=== PATIENT | male | born 1960 | race Two or more races ===

== ENCOUNTER → 2024-04-24 | Outpatient (CLI) | payer OTHER, SELFPAY ==
[2024-04-24 12:02] LABS: Basophils # (Auto) 0.1 Thou/mm3 (0.0-0.2); Basophils % (Auto) 1 % (0-2.5); Eosinophils # (Auto) 0.7 Thou/mm3 (0.0-0.5); Eosinophils % (Auto) 7 % (0-10); Hematocrit 40.8 % (41.0-53.0); Hemoglobin 13.5 g/dL (13.5-16.0); Immature Granulocytes % (Auto) 0 % (0-0); Immature Granulocytes Auto 0.04 Thou/mm3 (0.00-0.00); Lymphocytes # (Auto) 2.4 Thou/mm3 (1.0-4.8); Lymphocytes % (Auto) 24 % (10-50); Mean Corpuscular HGB Conc 33.1 g/dl (31.0-37.0); Mean Corpuscular Hemoglobin 32.1 pg (25.0-35.0); Mean Corpuscular Volume 97 fL (80-100); Monocytes # (Auto) 1.1 Thou/mm3 (0.0-0.8); Monocytes % (Auto) 11 % (0-12); Neutrophils # (Auto) 5.7 Thou/mm3 (1.8-7.7); Neutrophils % (Auto) 57 % (37-80); Nucleated Red Blood Cell % 0 /100 WBC (0); Platelet Count 154 Thou/mm3 (140-440); RDW Standard Deviation 49.8 fL (35.1-43.9); Red Blood Count 4.21 Miln/mm3 (4.50-5.90)
[2024-04-24 12:09] LABS: Glucose Estimated Average 103 mg/dL (80-131); Hemoglobin A1C 5.2 % Hgb (4.8-6.0)
[2024-04-24 12:11] LABS: Prostate Specific Antigen 0.64 ng/mL (0-4.00)
[2024-04-24 12:20] LABS: Alanine Aminotransferase 22 U/L (10-49); Albumin, Serum 4.4 gm/dL (3.4-4.8); Albumin/Globulin Ratio 1.7 (1.2-2.2); Alkaline Phosphatase 78 U/L (46-116); Anion Gap 4 (7-16); Aspartate Amino Transferase 19 U/L (0-34); BUN/Creatinine Ratio 20 Ratio (12-20); Bilirubin,Total 0.6 mg/dL (0.3-1.2); Blood Urea Nitrogen 20 mg/dL (9-23); Calcium 9.4 mg/dL (8.3-10.6); Calcium (Corrected) 9.4 mg/dL (8.5-10.1); Carbon Dioxide 32.1 mMol/L (20.0-31.0); Cardiac Risk Estimate 2.3 RATIO (4.0-6.7); Chloride 103 mMol/L (98-107); Cholesterol 102 mg/dL (132-200); Globulin 2.6 gm/dL (2.3-3.5); Glucose 84 mg/dL (74-106); HDL Cholesterol 45 mg/dL (40-60); LDL Cholesterol,Calculated 41 mg/dL (0-130); Osmolality,Calculated 279 (275-295); Sodium 139 mMol/L (136-145); Triglycerides 81 mg/dL (30-150); eGFR > 60 See Note
[2024-04-24 12:50] LABS: Hepatitis C Antibody Non Reactive (Non React)
[2024-05-02 09:32] LABS: Direct LDL* 43 mg/dL (<100)
== END | disposition home or self-care (01) ==
PROVIDERS: PCP Family Medicine; Referring Provider Nurse Practitioner Family; Visit Provider Nurse Practitioner Family
DX: E78.00 Pure hypercholesterolemia, unspecified (principal); Z11.59 Encounter for screening for other viral diseases; Z13.1 Encounter for screening for diabetes mellitus; Z13.9 Encounter for screening, unspecified
CPT/HCPCS: 36415; 80053; 80061; 83036; 83721; 84153; 85025; 86803

== ENCOUNTER 2024-11-23 18:55 | Inpatient (IN) | payer OTHER, MEDICARE, SELFPAY ==
[2024-11-23 19:23] VITALS: BP 119/69; PULSE 80; RESP 20; TEMP 36.9; O2SAT 95
--- NOTE | 2024-11-23 19:40 | EDNOTE_ITS ---
<Statement entered by Judy Chacon MD - 11/24/24 03:40> As co-signing physician, I was present and available for consult prn. I concur with the plan and care as documented by the midlevel provider. Nausea/Vomit./Diarrhea-RME/HPI General Chief complaint: Dental/Oral/Throat Stated complaint: Choking on steak X 2 hours Time Seen by Provider: 11/23/24 19:34 Arrival date/time: 11/23/24 18:55 64M with history of ankylosing spondylitis presents to ED with 2 hours of steak stuck in throat/esophagus. Patient denies SOB. This has never happened before to this extent. Limitations: no limitations Related Data Home Medications ?Medication ?Instructions ?Recorded ?Confirmed atorvastatin 10 mg tablet 10 mg PO QPM 11/24/24 calcium carbonate 600 mg PO TID 11/24/2411/24 folic acid 100 mcg PO QDAY 11/24/24 metoprolol tartrate 50 1 tab PO QDAY 11/24/2411/24 mg-hydrochlorothiazide 25 mg tablet multivitamin 1 tab PO QDAY 11/24/2411/24 secukinumab 150 mg/mL subcutaneous 300 mg subcut QWEEK 11/24/24 11/24/24 syringe (Cosentyx 300 mg/2 Syringes () Allergies Allergy/AdvReac Type Severity Reaction Status Date / Time diazepam (From Valium) Allergy Verified 11/23/24 18:59 morphine Allergy Verified 11/23/24 18:59 Review of Systems Review of Systems Systems Reviewed: All systems reviewed, normal except as documented Constitutional Constitutional: Reports system reviewed and no additional complaints, except as documented, Denies fever(s) and Denies headache(s) ENT Ears, Nose, Mouth, and Throat: Denies disequilibrium and Denies headache(s) Cardiovascular Cardiovascular: Reports system reviewed and no additional complaints, except as documented, Denies chest pain and Denies dyspnea Respiratory Respiratory: Reports system reviewed and no additional complaints, except as documented, Denies cough and Denies dyspnea Gastrointestinal Gastrointestinal: Reports system reviewed and no additional complaints, except as documented, Denies abdominal pain, Denies nausea and Denies vomiting Neurologic Neurologic: Reports system reviewed and no additional complaints, except as documented, Denies confusion, Denies disequilibrium and Denies headache(s) Psychiatric Psychiatric: Denies confusion Past Medical History Social History SMOKING STATUS: Former smoker ED Exam General Limitations: Present no limitations General appearance: Present alert and in no apparent distress Head Head exam: Present atraumatic Eye Eye exam: Present normal appearance, PERRL and EOMI ENT ENT exam: Present normal exam, normal oropharynx and mucous membranes moist Neck Neck exam: Present normal inspection, full ROM and trachea midline Chest Chest inspection: Present normal inspection and symmetric chest wall rise Respiratory Respiratory exam: Present normal lung sounds bilaterally Cardiovascular Cardiovascular exam: Present regular rate, normal rhythm and normal heart sounds Abdominal Exam Abdominal exam: Present soft and normal bowel sounds Extremities Exam Extremities exam: Present normal inspection and full ROM Back Exam Back exam: Present normal inspection and full ROM Neurological Exam Neurological exam: Present alert, oriented X3 and CN II-XII intact Psychiatric Psychiatric exam: Present normal affect and normal mood Skin Skin exam: Present warm, dry, intact and normal color Course Quality Measures none Orders Category Date Time Status Blood glucose [Bedside Blood Glucose] NOW Care 11/23/24 19:02 Active COVID-19 Screening Questionnaire NOW Care 11/23/24 22:23 Active Decision to Admit X1 Care 11/23/24 22:23 Completed Insert IV NOW Care 11/23/24 22:22 Active NPO NOW Care 11/23/24 22:23 Active Consult to Gastroenterology Stat Cons 11/23/24 22:22 Ordered Diet NPO (NOW) Diet 11/23/24 22:23 Active XR chest 2V Stat Exams 11/23/24 22:27 Completed CBC [CBC] Stat Lab 11/23/24 22:42 Completed CMP [Comprehensive Metabolic Panel] Stat Lab 11/23/24 22:42 Completed INR [Prothrombin Time with INR] Stat Lab 11/23/24 22:42 Completed PTT [Partial Thromboplastin Time] Stat Lab 11/23/24 22:42 Completed Glucagon Inj Med 11/23/24 19:34 Discontinued 1 mg IM X1 ONE Metoclopramide Inj [Reglan Inj] Med 11/23/24 21:11 Discontinued 10 mg IM X1 ONE Vital Signs Vital signs: Vital Signs Temperature 98.5 F 11/23/24 19:23 Pulse Rate 80 11/23/24 19:23 Respiratory Rate 20 11/23/24 19:23 Blood Pressure 119/69 11/23/24 19:23 Pulse Oximetry (%) 95 11/23/24 19:23 Oxygen Delivery Method Room Air 11/23/24 19:23 O2 at 95% on RA and WNLs Nausea/Vomiting/Diarrhea MDM Narrative MDM Narrative:: 64M with history of ankylosing spondylitis presents to ED with 2 hours of steak stuck in throat/esophagus. Patient denies SOB. This has never happened before to this extent. Physical exam reveals clear lungs and normal WOB. Patient is afebrile, alert, but appears uncomfortable. Speech normal. No relief with glucagon and Reglan. Spoke to Dr. Rowland who will consult and scope in AM. Spoke to IM resident who reports to Dr. Vaughan, who will admit. Patient data External records reviewed:: [facility] previous records Clinical information provided by:: patient Social determinants that could affect healthcare access:: none Patient has the following chronic illnesses:: ankylosing spondylitis How is presenting disease/condition affected by chronic disease/condition?: exacerbated by Evaluation data The following diagnostics were reviewed and interpreted by me:: lab results and radiology exam(s) Lab and/or radiology exams considered but not ordered:: ordered Interpretation Summary: above Medications / Prescriptions Medications / Prescriptions considered but not ordered:: ordered Medication administrations:: Medication Administration History Acetaminophen (Acetaminophen 325 Mg Tablet) 650 mg PO Q6H PRN PRN Reason: PAIN SCALE 1-3 (mild Stop: 12/23/24 23:02 Heparin Sodium (Porcine) (Heparin Sod Inj 5000 Unit/Ml Vial) 5,000 unit SC Q12HR [facility] Stop: 12/08/24 08:59 Nystatin (Nystatin Susp 1 Ml) 5 ml PO QID [facility] Stop: 12/01/24 05:59 Ondansetron HCl (Ondansetron Inj 2 Mg/Ml Inj 2 Ml) 4 mg IVP Q6H PRN; Protocol PRN Reason: NAUSEA OR VOMITING Stop: 12/23/24 23:02 Discontinued Medications Glucagon (Glucagon Inj 1 Mg Vial) 1 mg IM X1 ONE Stop: 11/23/24 19:35 Last Admin: 11/23/24 19:46 Dose: 1 mg Documented By: OA Metoclopramide HCl (Metoclopramide Inj 5 Mg/Ml Vial 2 Ml) 10 mg IM X1 ONE; Protocol Stop: 11/23/24 21:12 Last Admin: 11/23/24 21:33 Dose: 10 mg Documented By: OA above Consultations Consultation(s) initiated? (list below): Yes Diagnosis Nausea Differential Diagnosis: traveler's diarrhea, food poisoning, gastroenteritis, clostridium difficile infection, drug-induced nausea and vomiting, dehydration and other (FB/food esophagus) Most likely diagnosis given after review of the tests above:: food in esophagus Admission Indicated Admission indicated?: indicated Admission Request Was there a request for admission?: Yes Admission Attestation Admission request attestation: Discussed case with [Dr. Vaughan] from Hospitalist service regarding admission. Discussed patients ED course, exam findings, labs, and radiology results. The Hospitalist [agrees] to accept the patient for admission. Disposition Plan Disposition Plan: Admit Discharge Plan Plan Patient Disposition: Admit Acute Care w/in Hospital Discharge Disposition comment: med/surg Patient condition on transfer: Stable Problem List Clinical Impression: Food impaction of esophagus
[2024-11-23] MEDS: GLUCAGON INJ 1 MG VIAL IM (19:46)
[2024-11-23] MEDS: METOCLOPRAMIDE INJ 5 MG/ML VIAL 2 ML 10 MG IM (21:33)
--- NOTE | 2024-11-23 22:27 | XR_ITS ---
Examination: PA lateral chest 2 views TECHNIQUE: Upright PA and lateral chest 2 views Date and time: November 23, 2024 10:37 PM INDICATIONS: Food stuck in the throat today. FINDINGS: Normal heart size Mild to moderate hyperexpansion. No aspiration pneumonia. Extensive thoracolumbar transpedicular stabilization Mild blunting of the costophrenic angles Resection left sixth rib IMPRESSION: No aspiration pneumonia
[2024-11-23 23:07] LABS: Basophils # (Auto) 0.1 Thou/mm3 (0.0-0.2); Basophils % (Auto) 1 % (0-2.5); Eosinophils # (Auto) 0.2 Thou/mm3 (0.0-0.5); Eosinophils % (Auto) 1 % (0-10); Hematocrit 42.2 % (41.0-53.0); Hemoglobin 14.5 g/dL (13.5-16.0); Immature Granulocytes % (Auto) 1 % (0-0); Immature Granulocytes Auto 0.12 Thou/mm3 (0.00-0.00); Lymphocytes # (Auto) 2.9 Thou/mm3 (1.0-4.8); Lymphocytes % (Auto) 13 % (10-50); Mean Corpuscular HGB Conc 34.4 g/dl (31.0-37.0); Mean Corpuscular Hemoglobin 31.9 pg (25.0-35.0); Mean Corpuscular Volume 93 fL (80-100); Monocytes # (Auto) 1.3 Thou/mm3 (0.0-0.8); Monocytes % (Auto) 6 % (0-12); Neutrophils # (Auto) 17.2 Thou/mm3 (1.8-7.7); Neutrophils % (Auto) 79 % (37-80); Nucleated Red Blood Cell % 0 /100 WBC (0); Platelet Count 189 Thou/mm3 (140-440); RDW Standard Deviation 46.8 fL (35.1-43.9); Red Blood Count 4.54 Miln/mm3 (4.50-5.90); White Blood Count 21.8 Thou/mm3 (3.8-10.6)
--- NOTE | 2024-11-23 23:09 | PD.RESHP ---
Documentation for date of: 11/23/24 HPI History of Present Illness Chief complaint: Foreign body aspiration History of present illness: 64-year-old male with past medical history of hypertension, ankylosing spondylitis, diverticulosis, psoriatic arthritis, history of goiter presenting to the ED on 11/23 after he had an episode of dysphagia and had a piece of steak stuck in his throat. Patient states that he was enjoying the ribeye steak sometime around 3 PM when he accidentally did not show well enough and had bits of steak traveled down his throat. Patient states that he coughed up most of it but still feels like there is still some amount stuck in his throat. Patient has extensive history of musculoskeletal surgeries in the past secondary to ankylosing spondylitis is. Patient also has psoriatic arthritis which he follows up with Dr. Knight in [place] for Cosentyx use. He has developed candidal infection secondary to monoclonal antibody use. Patient also had a colonoscopy about 2 years ago which revealed diverticulosis but there was no signs of ulcerative colitis or IBD. Patient also apparently has positive anti-TPO antibodies and history of goiter but denies taking thyroid hormone replacement patient denies any other concerning symptoms at this time. Medical history: As stated above Surgical history: Thoracic osteotomy in 2007, 2009, cervical osteotomy 2011, leg skin graft on 1986 secondary to acidic spill accident during work Allergies: Diazepam, morphine Medications: Metoprolol (unsure if succinate or tartrate) 25 mg daily, Cosentyx Linzess Family history: Patient's family including father and daughter both have ankylosing spondylitis, patient's brother has Crohn's disease Social history: Patient lives in [place], lives alone, currently disabled but used to work as a technical manager chemical plant ROS: All 12 systems system patient denies unless otherwise stated in HPI In the ED, patient presented normotensive, regular heart rate, 20, afebrile, saturating 95 on room air. Pertinent lab findings include WBC 21.8, hemoglobin 14.5 with MCV of 93, unremarkable CMP. Chest x-ray shows no aspiration pneumonia but there was mild blunting of the costophrenic and mL, resection of the left sixth rib and extensive thoracolumbar transpedicular stabilization. Urinalysis pending. Patient will be admitted for foreign object removal with endoscopy, GI specialist consulted. Exam Vital Signs Temp Pulse Resp BP Pulse Ox O2 Del Method 98.5 F 80 20 119/69 95 Room Air 11/23/24 19:23 11/23/24 19:23 11/23/24 19:23 11/23/24 19:23 11/23/24 19:23 11/23/24 19:23 Narrative Exam Physical Exam: GENERAL: Awake, answering questions appropriately, appears stated age HEENT: NC/AT. Moist mucosa. PERRLA/EOMI. Mallampati class III, no foreign object noted in oropharynx, thrush noted CARDIO: Heart RRR, no obvious murmurs, no JVD. PULM: Coughing but no visible SOB. Lungs CTA B/L. GI: Abdomen soft, NT/ND, +BS. SKIN/MSK/EXT: No wounds/discoloration/edema/amputations. +Pedal pulses present B/L. NEURO: Oriented x3, Moves extremities x4, no focal neurologic deficits noted Results: Labs 11/23/24 22:42 11/23/24 22:42 Quality Measures Quality Measures none Medications Home Medications and Allergies Home Medications ?Medication ?Instructions ?Recorded ?Confirmed ?Type atorvastatin 10 mg tablet 10 mg PO QPM 11/24/24 11/24/24 History calcium carbonate 600 mg PO TID 11/24/24 11/24/24 History folic acid 100 mcg PO QDAY 11/24/24 11/24/24 History metoprolol tartrate 50 1 tab PO QDAY 11/24/24 11/24/24 History mg-hydrochlorothiazide 25 mg tablet multivitamin 1 tab PO QDAY 11/24/24 11/24/24 History secukinumab 150 mg/mL subcutaneous 300 mg subcut QWEEK 11/24/24 11/24/24 History syringe (Cosentyx 300 mg/2 Syringes () Allergies Allergy/AdvReac Type Severity Reaction Status Date / Time diazepam (From Valium) Allergy Verified 11/23/24 18:59 morphine Allergy Verified 11/23/24 18:59 Visit Medications Acetaminophen (Acetaminophen 325 Mg Tablet) 650 mg PO Q6H PRN PRN Reason: PAIN SCALE 1-3 (mild Stop: 12/23/24 23:02 Heparin Sodium (Porcine) (Heparin Sod Inj 5000 Unit/Ml Vial) 5,000 unit SC Q12HR [facility] Stop: 12/08/24 08:59 Ondansetron HCl (Ondansetron Inj 2 Mg/Ml Inj 2 Ml) 4 mg IVP Q6H PRN; Protocol PRN Reason: NAUSEA OR VOMITING Stop: 12/23/24 23:02 Discontinued Medications Glucagon (Glucagon Inj 1 Mg Vial) 1 mg IM X1 ONE Stop: 11/23/24 19:35 Last Admin: 11/23/24 19:46 Dose: 1 mg Metoclopramide HCl (Metoclopramide Inj 5 Mg/Ml Vial 2 Ml) 10 mg IM X1 ONE; Protocol Stop: 11/23/24 21:12 Last Admin: 11/23/24 21:33 Dose: 10 mg Assessment & Plan Plan 64-year-old male with past medical history of hypertension, ankylosing spondylitis, diverticulosis, psoriatic arthritis, history of goiter presenting to the ED after he had an episode of dysphagia and had a piece of steak stuck in his throat will be admitted for foreign object removal with endoscopy, GI specialist consulted. #Foreign body aspiration As stated above in HPI patient has some degree of dysphagia secondary to cervical osteotomy problem ankylosing spondylitis Patient accidentally swallowed a piece of steak with some remnant pieces apparently still felt in the throat Patient currently has stable vitals, denies having any concerning symptoms other than some discomfort and coughing up some sputum Chest x-ray does not show any aspiration pneumonia ED provider contacted GI specialist was agreed to EGD Plan: N.p.o. Schedule EGD #Leukocytosis #Psoriatic arthritis #Monoclonal antibody use #Oral thrush Patient does not meet any sepsis criteria at this time and differentials for leukocytosis include: Inflammatory state secondary to foreign body ingestion, medication use, other source of infection Chest x-ray does not show any pneumonia Urinalysis was not ordered in the ED but the patient denies having any urinary symptoms Patient's vitals are stable On examination, patient does have oral thrush but no other concerning rashes noted elsewhere Patient's WBC significantly elevated at 21.8 Plan: Follow-up on urinalysis and consider urine cultures if positive Follow-up with morning labs Oral nystatin ordered for oral thrush Medication reconciliation #Hypertension As stated above, patient takes metoprolol (unsure if succinate or tartrate) 25 mg daily Plan: Restart when appropriate #Ankylosing spondylolysis with extensive surgery #History of goiter #Diverticulosis Chronic medical conditions not pertinent to the following presentation Plan: Monitor for any acute changes Health Maintenance: Lines: PIV Diet: N.p.o. Bowel: Not needed GI prophylaxis: Not needed at this time DVT prophylaxis: Heparin subcu Dispo: Endoscopy with Dr. Rowland on 11/24 Code: DNR Patient seen and examined with attending Dr. Alexus Stubbs, DO PGY-1 Internal Medicine - GME Attending Provider Attestation/Addendum I reviewed labs, imaging, EKG, home medications and prior available records. Face to face evaluation was performed by me. I have personally examined the patient and discussed assessment and plan with the IM team. I reviewed the resident note and agree with the plan with exceptions as below. History of ankylosing spondylitis Dysphagia Possible food stuck in esophagus Leukocytosis Start IV fluids N.p.o. Consult GI for EGD Trend WBC
[2024-11-23 23:23] LABS: INR 1.1 (0.9-1.3); Partial Thromboplastin Time 28.4 Seconds (22.0-36.0); Prothrombin Time 11.8 Seconds (9.0-12.2)
[2024-11-23 23:28] LABS: Alanine Aminotransferase 27 U/L (10-49); Albumin, Serum 4.8 gm/dL (3.4-4.8); Albumin/Globulin Ratio 1.7 (1.2-2.2); Alkaline Phosphatase 84 U/L (46-116); Anion Gap 10 (7-16); Aspartate Amino Transferase 33 U/L (0-34); BUN/Creatinine Ratio 17 Ratio (12-20); Bilirubin,Total 0.7 mg/dL (0.3-1.2); Blood Urea Nitrogen 20 mg/dL (9-23); Calcium 9.7 mg/dL (8.3-10.6); Calcium (Corrected) 9.7 mg/dL (8.5-10.1); Carbon Dioxide 27.6 mMol/L (20.0-31.0); Chloride 105 mMol/L (98-107); Creatinine (Component) 1.2 mg/dL (0.6-1.3); Globulin 2.9 gm/dL (2.3-3.5); Glucose 96 mg/dL (74-106); Osmolality,Calculated 287 (275-295); Potassium 4.1 mMol/L (3.4-5.1); Sodium 143 mMol/L (136-145); Total Protein 7.7 gm/dL (5.7-8.2); eGFR > 60 See Note
[2024-11-24] VITALS (19 sets, daily range): BP systolic 109–164; BP diastolic 63–91; PULSE 78–117; RESP 16–21; TEMP 36.5–36.9; O2SAT 93–100; BMI 25.8
[2024-11-24 06:15] LABS: Collection Type, Urine Clean Catch
[2024-11-24 06:22] LABS: Bilirubin,Urine Negative (Negative); Blood,Urine Negative (Negative); Clarity,Urine Clear (Clear/Hazy); Color,Urine Yellow (Lt Yel-Yel); Glucose, Urine Negative (Negative); Ketones,Urine 2+ (Negative); Leukocyte Esterase,Urine Negative (Negative); Nitrite,Urine Negative (Negative); Protein,Urine Negative (Neg - Trace); RBC,Urine < 1 /hpf (0-3); Specific Gravity,Urine 1.024 (1.001-1.035); Squamous Epithelial Cell,Urine < 1 /hpf (0-5); Urobilinogen,Urine Negative mg/dL (0.0-1.0); WBC,Urine 1 /hpf (0-5)
[2024-11-24 06:28] LABS: Basophils # (Auto) 0.1 Thou/mm3 (0.0-0.2); Basophils % (Auto) 1 % (0-2.5); Eosinophils # (Auto) 0.1 Thou/mm3 (0.0-0.5); Eosinophils % (Auto) 1 % (0-10); Hematocrit 38.5 % (41.0-53.0); Hemoglobin 13.4 g/dL (13.5-16.0); Immature Granulocytes % (Auto) 0 % (0-0); Immature Granulocytes Auto 0.02 Thou/mm3 (0.00-0.00); Lymphocytes # (Auto) 2.7 Thou/mm3 (1.0-4.8); Lymphocytes % (Auto) 21 % (10-50); Mean Corpuscular HGB Conc 34.8 g/dl (31.0-37.0); Mean Corpuscular Hemoglobin 32.3 pg (25.0-35.0); Mean Corpuscular Volume 93 fL (80-100); Monocytes # (Auto) 1.2 Thou/mm3 (0.0-0.8); Monocytes % (Auto) 9 % (0-12); Neutrophils # (Auto) 8.7 Thou/mm3 (1.8-7.7); Neutrophils % (Auto) 68 % (37-80); Nucleated Red Blood Cell % 0 /100 WBC (0); Platelet Count 155 Thou/mm3 (140-440); RDW Standard Deviation 47.2 fL (35.1-43.9); Red Blood Count 4.15 Miln/mm3 (4.50-5.90); White Blood Count 12.7 Thou/mm3 (3.8-10.6)
[2024-11-24 06:56] LABS: Anion Gap 12 (7-16); BUN/Creatinine Ratio 15 Ratio (12-20); Blood Urea Nitrogen 17 mg/dL (9-23); Calcium 9.2 mg/dL (8.3-10.6); Carbon Dioxide 27.1 mMol/L (20.0-31.0); Chloride 105 mMol/L (98-107); Creatinine (Component) 1.1 mg/dL (0.6-1.3); Estimated Creatinine Clearance 64.3 mL/min (>60); Glucose 88 mg/dL (74-106); Osmolality,Calculated 287 (275-295); Potassium 3.7 mMol/L (3.4-5.1); Sodium 144 mMol/L (136-145); eGFR > 60 See Note
[2024-11-24] MEDS: HEPARIN SOD INJ 5000 UNIT/ML VIAL SC ×2 (08:36→20:35)
--- NOTE | 2024-11-24 09:28 | PC.SS ---
Patient Deangelo Pettit is a 64 Year old male admitted for Foreign body Aspiration. SS met with patient at bedside to verify demographic information. Patient appeared alert and oriented. Patient reports he lives at home alone. Patient reports his medical decision maker is his brother, Julito Pettit, . Patient reports he does not utilize any source of DME to assist with ambulation. Patient is able to complete all ADL's independently. Choice of pharmacy is [facility]. Patient reports his PCP is Immanuel Chirinos. At time of discharge patient reports he will return back home, patient reports he will transport himself. Next of kin, Brother, Julito Pettit [phone] Discharge plan: Home
--- NOTE | 2024-11-24 14:23 | ESPR_ITS ---
Documentation for date of: 11/24/24 Subjective Subjective Interval history: Patient is a new overnight admit, admitted for foreign body obstruction in esophagus pending EGD.?Patient seen and examined at bedside this AM. He reports continued obstructive feeling and is unable to swallow any liquids or saliva and has been spitting up. Otherwise no pain or increased work of breathing.?Labs and vitals were reviewed. WBC downtrended since admission, otherwise all else normal.?No further complaints at this time. Review of systems otherwise negative except what is mentioned above. Exam Vital Signs Temp Pulse Resp BP Pulse Ox O2 Del Method 98.4 F 90 18 156/82 H 96 Room Air 11/24/24 12:00 11/24/24 12:00 11/24/24 12:00 11/24/24 12:00 11/24/24 12:11/24/24 12:00 Narrative Exam Physical Exam General: Awake and in no acute distress. Conversational and non-toxic appearing. HEENT: Normocephalic, atraumatic, mucous membranes moist. Heart: Regular rate and rhythm, normal S1 and S2, no murmurs. Lungs: Clear to auscultation with no wheezing or crackles. Abdomen: Soft, nondistended, nontender, positive bowel sounds. ?No guarding or rebound tenderness. Neurologic: Alert and oriented x3, no gross neurological deficit, and patient able to move all 4 extremities. Extremities: No edema. Skin: No rash or ecchymoses. Objective Labs 11/25/24 04:50 11/25/24 04:50 Labs: Laboratory Results - last 24 hr 11/23/24 11/24/24 11/24/24 22:42 04:05 05:47 WBC 21.8 H RBC 4.54 Hgb 14.5 Hct 42.2 MCV 93 MCH 31.9 MCHC 34.4 RDW Std Deviation 46.8 H Plt Count 189 Neut % (Auto) 79 Lymph % (Auto) 13 [place] % (Auto) 6 Eos % (Auto) 1 Baso % (Auto) 1 Neut # (Auto) 17.2 H Lymph # (Auto) 2.9 [place] # (Auto) 1.3 H Eos # (Auto) 0.2 Baso # (Auto) 0.1 Immature Gran # (Auto) 0.12 H Absolute Nucleated RBC 0.00 Immature Gran % 1 H Nucleated RBC % 0 PT 11.8 INR 1.1 APTT 28.4 Sodium 143 144 Potassium 4.1 3.7 Chloride 105 105 Carbon Dioxide 27.6 27.1 Anion Gap 10 12 BUN 20 17 Creatinine 1.2 1.1 Estim Creat Clear Calc Not Performed. 64.3 eGFR > 60 > 60 BUN/Creatinine Ratio 17 15 Glucose 96 88 Calculated Osmolality 287 287 Calcium 9.7 9.2 Corrected Calcium 9.7 Total Bilirubin 0.7 AST 33 ALT 27 Alkaline Phosphatase 84 Total Protein 7.7 Albumin 4.8 Globulin 2.9 Albumin/Globulin Ratio 1.7 Ur Collection Type Clean Catch Urine Color Yellow Urine Clarity Clear Urine pH 5.0 Ur Specific [place] 1.024 Urine Protein Negative Urine Glucose (UA) Negative Urine Ketones 2+ A Urine Blood Negative Urine Nitrite Negative Urine Bilirubin Negative Urine Urobilinogen (Auto) Negative Ur Leukocyte Esterase Negative Urine RBC < 1 Urine WBC 1 Ur Squamous Epith Cells < 1 Urine Bacteria None 11/24/24 06:05 WBC 12.7 H D RBC 4.15 L Hgb 13.4 L Hct 38.5 L MCV 93 MCH 32.3 MCHC 34.8 RDW Std Deviation 47.2 H Plt Count 155 D Neut % (Auto) 68 Lymph % (Auto) 21 [place] % (Auto) 9 Eos % (Auto) 1 Baso % (Auto) 1 Neut # (Auto) 8.7 H Lymph # (Auto) 2.7 [place] # (Auto) 1.2 H Eos # (Auto) 0.1 Baso # (Auto) 0.1 Immature Gran # (Auto) 0.02 H Absolute Nucleated RBC 0.00 Immature Gran % 0 Nucleated RBC % 0 PT INR APTT Sodium Potassium Chloride Carbon Dioxide Anion Gap BUN Creatinine Estim Creat Clear Calc eGFR BUN/Creatinine Ratio Glucose Calculated Osmolality Calcium Corrected Calcium Total Bilirubin AST ALT Alkaline Phosphatase Total Protein Albumin Globulin Albumin/Globulin Ratio Ur Collection Type Urine Color Urine Clarity Urine pH Ur Specific [place] Urine Protein Urine Glucose (UA) Urine Ketones Urine Blood Urine Nitrite Urine Bilirubin Urine Urobilinogen (Auto) Ur Leukocyte Esterase Urine RBC Urine WBC Ur Squamous Epith Cells Urine Bacteria Quality Measures Quality Measures none Assessment & Plan Assessment Current Active Medications: Generic Name Dose Route Start Last Admin Trade Name Freq PRN Reason Stop Dose Admin Acetaminophen 650 mg 11/23/24 23:03 Acetaminophen 325 Mg Tablet PO 12/23/24 23:02 Q6H PRN PAIN SCALE 1-3 (mild Diphenhydramine HCl 25 mg 11/24/24 13:57 Diphenhydramine Inj 50 Mg/Ml Vial IVP 11/24/24 15:57 [id number] PRN MODERATE SEDATION Fentanyl Citrate 50 mcg 11/24/24 13:57 Fentanyl Cit Inj 50 Mcg/Ml Amp 2ml IVP 11/24/24 15:57 Q2M PRN MODERATE SEDATION Heparin Sodium (Porcine) 5,000 unit 11/24/24 09:00 11/24/24 08:36 Heparin Sod Inj 5000 Unit/Ml Vial SC 12/08/24 08:59 5,000 unit Q12HR [facility] Administration Nystatin 5 ml 11/24/24 06:00 11/24/24 12:50 Nystatin Susp 1 Ml PO 12/01/24 05:59 Not Given QID [facility] Ondansetron HCl 4 mg 11/23/24 23:03 Ondansetron Inj 2 Mg/Ml Inj 2 Ml IVP 12/23/24 23:02 Q6H PRN NAUSEA OR VOMITING Protocol Plan 64-year-old male with past medical history of hypertension, ankylosing spondylitis, diverticulosis, psoriatic arthritis, history of goiter presenting to the ED after he had an episode of dysphagia and had a piece of steak stuck in his throat will be admitted for foreign object removal with endoscopy, GI specialist consulted. #Foreign body aspiration As stated above in HPI patient has some degree of dysphagia secondary to cervical osteotomy problem ankylosing spondylitis Patient accidentally swallowed a piece of steak with some remnant pieces apparently still felt in the throat Patient currently has stable vitals, denies having any concerning symptoms other than some discomfort and coughing up some sputum Chest x-ray does not show any aspiration pneumonia ED provider contacted GI specialist was agreed to EGD Plan: -Pending EGD #Leukocytosis, likely reactive, downtrending #Psoriatic arthritis #Monoclonal antibody use #Oral thrush Patient does not meet any sepsis criteria at this time and differentials for leukocytosis include: Inflammatory state secondary to foreign body ingestion, medication use, other source of infection Chest x-ray does not show any pneumonia Urinalysis was not ordered in the ED but the patient denies having any urinary symptoms Patient's vitals are stable On examination, patient does have oral thrush but no other concerning rashes noted elsewhere Patient's WBC significantly elevated at 21.8 Plan: -Oral nystatin ordered for oral thrush #Hypertension As stated above, patient takes metoprolol (unsure if succinate or tartrate) 25 mg daily Plan: -Restart when appropriate #Ankylosing spondylolysis with extensive surgery #History of goiter #Diverticulosis Chronic medical conditions not pertinent to the following presentation Plan: -Monitor for any acute changes Health Maintenance: Lines: PIV Diet: N.p.o. Bowel: Not needed GI prophylaxis: Not needed at this time DVT prophylaxis: Heparin subcu Dispo: Endoscopy with Dr. Rowland on 11/24 Code: DNR Patient plan of care was discussed with the attending physician, Dr. Raygoza. Ranjana Johnson, PGY-2 Attending Provider Attestation/Addendum Face to face evaluation was performed by me. I have personally seen and examined the patient. I discussed the assessment and plan with the entire medicine team. I reviewed available medical records, imaging studies, laboratory results. I agree with the above subjective data, objective findings, assessment and plan except as corrected by me or noted below Foreign body aspiration History of diverticulosis History of goiter Essential hypertension Okay GI consult, pending EGD. Ankylosing spondylosis NPO resume diaphoretic years More than > 30 minutes spent on the encounter
--- NOTE | 2024-11-24 15:12 | SUR.PHASEI ---
1512 To PACU awake able to lift head off of pillow, follow simple commands, continue to monitor pt vital signs and status.
--- NOTE | 2024-11-24 15:17 | PD.IMCONS ---
HPI Data of Consult Requesting Physician: Ke Raygoza MD Primary Care Provider: Immanuel Chirinos MD Consult Narrative Reason for consult: Foreign body obstruction esophagus History of present illness: 64 years old male evaluated the request of the ER physician He was eating steak dinner and he choked and a piece of meat got stuck in the midesophagus and his excessive salivation He has been having dysphagia for a long time He does have ankylosing spondylitis and had a cervical spine surgery done with metal plates And currently on secukinumab 150 mg/mL total dose 300 mg and 2 mL subcu once a week cc:: cc: Ke Raygoza MD Review of Systems Review of Systems Systems Reviewed: All systems reviewed, normal except as documented Meds Home Medications and Allergies Home Medications ?Medication ?Instructions ?Recorded ?Confirmed ?Type atorvastatin 10 mg tablet 10 mg PO QPM 11/24/24 11/24/24 History calcium carbonate 600 mg PO TID 11/24/24 11/24/24 History folic acid 100 mcg PO QDAY 11/24/24 11/24/24 History metoprolol tartrate 50 1 tab PO QDAY 11/24/24 11/24/24 History mg-hydrochlorothiazide 25 mg tablet multivitamin 1 tab PO QDAY 11/24/24 11/24/24 History secukinumab 150 mg/mL subcutaneous 300 mg subcut QWEEK 11/24/24 11/24/24 History syringe (Cosentyx 300 mg/2 Syringes () Allergies Allergy/AdvReac Type Severity Reaction Status Date / Time diazepam (From Valium) Allergy Verified 11/23/24 18:59 morphine Allergy Verified 11/23/24 18:59 Exam Vital Signs Temp Pulse Resp BP Pulse Ox O2 Del Method O2 Flow Rate 98.4 F 94 17 116/73 99 Room Air 3 11/24/24 12:00 11/24/24 15:05 11/24/24 15:05 11/24/24 15:05 11/24/24 15:05 11/24/24 12:00 11/24/24 15:05 Constitutional Comments: Alert oriented Routine Respiratory Exam Comments: Normal to auscultation Routine Abdominal Exam Comments: Soft nontender Results Labs 11/24/24 06:05 11/24/24 04:05 Labs: Short CBC 11/23/24 11/24/24 Range/Units 22:42 06:05 WBC 21.8 H 12.7 H D (3.8-10.6) Thou/mm3 Hgb 14.5 13.4 L (13.5-16.0) g/dL Hct 42.2 38.5 L (41.0-53.0) % Plt Count 189 155 D (140-440) Thou/mm3 BMP 11/23/24 11/24/24 22:42 04:05 Sodium 143 144 Potassium 4.1 3.7 Chloride 105 105 Carbon Dioxide 27.6 27.1 BUN 20 17 Creatinine 1.2 1.1 Glucose 96 88 Calcium 9.7 9.2 Liver Function 11/23/24 Range/Units 22:42 Total Bilirubin 0.7 (0.3-1.2) mg/dL AST 33 (0-34) U/L ALT 27 (10-49) U/L Alkaline Phosphatase 84 (46-116) U/L Albumin 4.8 (3.4-4.8) gm/dL Urine 11/24/24 Range/Units 05:47 Urine Color Yellow (Lt Yel-Yel) Urine Clarity Clear (Clear/Hazy) Urine pH 5.0 (5.0-7.0) Ur Specific [place] 1.024 (1.001-1.035) Urine Protein Negative (Neg - Trace) Urine Glucose (UA) Negative (Negative) Assessment and Plan Additional Assessment & Plan Additional Plan: # Foreign body obstruction esophagus # Progressive dysphagia # Dyspepsia Plan consent obtained for fiberoptic esophagogastroduodenoscopy with possible biopsy possible therapeutic intervention under intravenous moderate sedation Other medical problems include Ankylosing spondylitis as per cervical spine surgery with metal plate and metallic screws Hyperlipidemia Thank you very much for the opportunity to participate in the care of this patient
--- NOTE | 2024-11-24 15:31 | PC.SS ---
SS follow up note; Pending EGD today. Patient will discharhe home when medically cleared.
--- NOTE | 2024-11-24 15:51 | SUR.PHASEI ---
1540 Transfer to room 352 in stable condition no complaints no s/s of distress noted tolerating ice chips.
[2024-11-24] MEDS: NYSTATIN SUSP 5 ML UDC PO ×2 (18:14→20:35)
[2024-11-25] VITALS: BP 118/70; PULSE 98; RESP 16; TEMP 36.7; O2SAT 98
[2024-11-25 04:00] VITALS: BP 127/64; PULSE 84; RESP 17; TEMP 36.8; O2SAT 98
[2024-11-25] MEDS: NYSTATIN SUSP 5 ML UDC PO (06:09)
[2024-11-25 06:24] LABS: Basophils # (Auto) 0.1 Thou/mm3 (0.0-0.2); Basophils % (Auto) 1 % (0-2.5); Eosinophils # (Auto) 0.2 Thou/mm3 (0.0-0.5); Eosinophils % (Auto) 1 % (0-10); Hematocrit 40.4 % (41.0-53.0); Hemoglobin 13.7 g/dL (13.5-16.0); Immature Granulocytes % (Auto) 0 % (0-0); Immature Granulocytes Auto 0.05 Thou/mm3 (0.00-0.00); Lymphocytes # (Auto) 2.6 Thou/mm3 (1.0-4.8); Lymphocytes % (Auto) 17 % (10-50); Mean Corpuscular HGB Conc 33.9 g/dl (31.0-37.0); Mean Corpuscular Hemoglobin 31.9 pg (25.0-35.0); Mean Corpuscular Volume 94 fL (80-100); Monocytes # (Auto) 1.6 Thou/mm3 (0.0-0.8); Monocytes % (Auto) 11 % (0-12); Neutrophils # (Auto) 10.2 Thou/mm3 (1.8-7.7); Neutrophils % (Auto) 70 % (37-80); Nucleated Red Blood Cell % 0 /100 WBC (0); Platelet Count 163 Thou/mm3 (140-440); RDW Standard Deviation 47.6 fL (35.1-43.9); Red Blood Count 4.29 Miln/mm3 (4.50-5.90); White Blood Count 14.6 Thou/mm3 (3.8-10.6)
[2024-11-25 06:58] LABS: Anion Gap 12 (7-16); BUN/Creatinine Ratio 14 Ratio (12-20); Blood Urea Nitrogen 14 mg/dL (9-23); Calcium 8.8 mg/dL (8.3-10.6); Carbon Dioxide 26.8 mMol/L (20.0-31.0); Chloride 103 mMol/L (98-107); Estimated Creatinine Clearance 70.7 mL/min (>60); Glucose 90 mg/dL (74-106); Osmolality,Calculated 283 (275-295); Potassium 3.7 mMol/L (3.4-5.1); Sodium 142 mMol/L (136-145); eGFR > 60 See Note
[2024-11-25 07:33] VITALS: BP 124/69; PULSE 77; RESP 17; TEMP 36.8; O2SAT 96
[2024-11-25] MEDS: HEPARIN SOD INJ 5000 UNIT/ML VIAL SC (08:15)
--- NOTE | 2024-11-25 10:17 | ESDS_ITS ---
Planned Discharge Date 11/25/24 DS: Providers Provider Date of admission: 11/23/24 23:03 Primary care physician: Immanuel Chirinos MD Admitting Provider: Matt Vaughan MD Attending Provider on Admission: Ke Raygoza MD Consults: 11/23/24 22:22 Consult to Gastroenterology Stat Comment: Consulting Provider: Alejandro Rowland Attending Provider on DC: Andrae Peter MD Discharging Provider: Andrae Peter MD DS: Diagnosis Problem List Completed Was Problem List Reviewed/Reconciled?: Yes Hospital Course Hospital Course Hospital course: Mr. Pettit is a 64-year-old male with past medical history of hypertension, ankylosing spondylitis, diverticulosis, psoriatic arthritis, history of goiter presented to [facility] ED on 11/23/24 after he had an episode of dysphagia and had a piece of steak stuck in his throat. During hospitalization patient underwent endoscopy for the removal of foreign body. During endoscopy large piece of meat was pushed down into the stomach and other findings included hemorrhagic gastritis and moderate duodenitis. Patient also underwent dilation of the esophagus due to intrinsic moderate circumfer ential scarring/stenosis. Patient was also found to have esophagitis and erythematous mucosa without active bleeding. Multiple biopsies were taken and sent to pathology. Patient is advised to use chopped diet and avoid eating difficult to chew food. Patient is also advised to follow-up with GI specialist Dr. Rowland for biopsy results. Patient is hemodynamically stable tolerated his diet well this morning, vitals are stable and patient is ready to be discharged home to self-care. Discharge Recommendations -Follow up with PCP within 1 week of discharge -Follow up with GI specialist Dr. Rowland within 2 weeks to review biopsy and pathology report -Continue rest of medications as previously prescribed -Return to the ED or call EMS if symptoms return and/or worsen Hospitalization Diagnosis #Foreign body aspiration #Leukocytosis, likely reactive, downtrending #Psoriatic arthritis #Monoclonal antibody use #Oral thrush #Hypertension #Ankylosing spondylolysis with extensive surgery #History of goiter #Diverticulosis Assessment and plan discussed with my attending physician Dr. Idalmis Peter (PGY-1)- Internal medicine resident Time Spent with Patient Time attestation: Total time spent providing and/or coordinating discharge services: Time spent: Greater than 30 minutes Exam Vital Signs Temp Pulse Resp BP Pulse Ox O2 Del Method O2 Flow Rate 98.2 F 77 17 124/69 96 Room Air 2 11/25/24 07:33 11/25/24 07:33 11/25/24 07:33 11/25/24 07:33 11/25/24 07:33 11/25/24 07:33 11/24/24 15:20 Narrative Exam General: Awake and in no acute distress. Conversational and non-toxic appearing. HEENT: Normocephalic, atraumatic, mucous membranes moist. Heart: Regular rate and rhythm, normal S1 and S2, no murmurs. Lungs: Clear to auscultation with no wheezing or crackles. Abdomen: Soft, nondistended, nontender, positive bowel sounds. ?No guarding or rebound tenderness. Neurologic: Alert and oriented x3, no gross neurological deficit, and patient able to move all 4 extremities. Extremities: No edema. Skin: No rash or ecchymoses. Discharge Plan Plan Patient Disposition: HOME (Self Care) Patient condition on transfer: Stable Care Plan Goals: -Follow up with PCP within 1 week of discharge -Follow up with GI specialist Dr. Rowland within 2 weeks to review biopsy and pathology report -Continue rest of medications as previously prescribed -Return to the ED or call EMS if symptoms return and/or worsen Prescriptions/Referrals Prescriptions/Med Rec: New nystatin 100,000 unit/mL Suspension 5 ml PO QID 7 Days Qty: 140 0RF Continued Cosentyx (2 Syringes) 150 mg/mL syringe 300 mg subcut QWEEK Rx Instructions: inject as 2 x150 mg injections each into different injection sites atorvastatin 10 mg tablet 10 mg PO QPM metoprolol ta-hydrochlorothiaz 50-25 mg tablet 1 tab PO QDAY folic acid 100 mcg PO QDAY calcium carbonate 600 mg calcium (1,500 mg) tablet 600 mg PO TID multivitamin Tablet 1 tab PO QDAY Referrals: Immanuel Chirinos([facility])MD [Primary Care Provider] - Patient/Caregiver Discharge Instructions Education Materials: Upper GI Endoscopy, ED Foreign Body Esophageal Rslv Print Language: Belarusian Stand Alone Forms: Dot Award Info., Patient Portal Info Letter Discharge Order Discharge Orders: Discharge (Routine); Ordered 11/25/24 Ordered By: Andrae Peter Quality Discharge Quality Measures VTE prophylaxis Attestestation MD Attestation Was diagnosed on the but febrile at that time and needs to be on antibiotics for 8 days now so so this yeah forearm allergies JERAMIE he is pretty sick he is older than he is got metastatic cancer so that is really nothing more I really do for years soFace to face evaluation was performed by me. I have personally seen and examined the patient. I discussed the assessment and plan with the entire medicine team. I reviewed available medical records, imaging studies, laboratory results. I agree with the above subjective data, objective findings, assessment and plan except as corrected by me or noted below Foreign body aspiration Esophageal dysphasia History of diverticulosis History of goiter Essential hypertension Okay GI consult, pending EGD. Ankylosing spondylosis EGD done--large piece of meat was pushed down to stomach, found to have gastritis and mild duodenitis Patient stable in a.m. sure tolerating diet wants to go home patient discharged More than > 30 minutes spent on the encounter
--- NOTE | 2024-11-25 18:23 | PD.IMPROG ---
Documentation for date of: 11/25/24 Subjective Subjective Interval history: Late entry for the note Case discussed with the internal medicine team Patient able to eat well and swallow better Okay to discharge patient home to be followed by the PCP Exam Vital Signs Temp Pulse Resp BP Pulse Ox O2 Del Method O2 Flow Rate 98.2 F 77 17 124/69 96 Room Air 2 11/25/24 07:33 11/25/24 07:33 11/25/24 07:33 11/25/24 07:33 11/25/24 07:33 11/25/24 07:33 11/24/24 15:20 Objective Labs 11/25/24 04:50 11/25/24 04:50 Labs: Laboratory Results - last 24 hr 11/25/24 04:50 WBC 14.6 H RBC 4.29 L Hgb 13.7 Hct 40.4 L MCV 94 MCH 31.9 MCHC 33.9 RDW Std Deviation 47.6 H Plt Count 163 Neut % (Auto) 70 Lymph % (Auto) 17 [place] % (Auto) 11 Eos % (Auto) 1 Baso % (Auto) 1 Neut # (Auto) 10.2 H Lymph # (Auto) 2.6 [place] # (Auto) 1.6 H Eos # (Auto) 0.2 Baso # (Auto) 0.1 Immature Gran # (Auto) 0.05 H Absolute Nucleated RBC 0.00 Immature Gran % 0 Nucleated RBC % 0 Sodium 142 Potassium 3.7 Chloride 103 Carbon Dioxide 26.8 Anion Gap 12 BUN 14 Creatinine 1.0 Estim Creat Clear Calc 70.7 eGFR > 60 BUN/Creatinine Ratio 14 Glucose 90 Calculated Osmolality 283 Calcium 8.8 Impressions Impression: Esophageal stricture status post endoscopic dilatation Status post removal of the foreign body which was the piece of steak Doing well Okay to discharge patient home to be followed by the PCP Assessment & Plan A&P Narrative # Foreign body obstruction esophagus # Progressive dysphagia # Dyspepsia Plan consent obtained for fiberoptic esophagogastroduodenoscopy with possible biopsy possible therapeutic intervention under intravenous moderate sedation Other medical problems include Ankylosing spondylitis as per cervical spine surgery with metal plate and metallic screws Hyperlipidemia Thank you very much for the opportunity to participate in the care of this patient Time Spent With Patient Time: Total time spent is greater than 50% in coordination of care (as documented) at patient's floor/unit and/or counseling patient:
== END 2024-11-25 11:39 | disposition home or self-care (01) | DRG 154 ==
LOC: SERX 21:13 → SERHOLD 11-24 00:17 → S3NX 11-24 02:16
PROVIDERS: Physician Assistant; Specialist; Admitting Provider Student in an Organized Health Care Education/Training Program; Emergency Provider Emergency Medicine; PCP Family Medicine; Visit Provider Internal Medicine
PROC: 0DB38ZX Excision of Lower Esophagus, Via Natural or Artificial Opening Endoscopic, Diagnostic (ICD-10-PCS; CPT 43239; principal; 2024-11-24 15:00)
DX: T17.228A Food in pharynx causing other injury, initial encounter (principal); K29.71 Gastritis, unspecified, with bleeding; B37.0 Candidal stomatitis; I10 Essential (primary) hypertension; M43.00 Spondylolysis, site unspecified; M45.9 Ankylosing spondylitis of unspecified sites in spine; W44.F3XA Food entering into or through a natural orifice, initial encounter; Z66 Do not resuscitate; K20.90 Esophagitis, unspecified without bleeding; K22.2 Esophageal obstruction; K29.80 Duodenitis without bleeding; K57.30 Diverticulosis of large intestine without perforation or abscess without bleeding; L40.50 Arthropathic psoriasis, unspecified; E78.5 Hyperlipidemia, unspecified; Z87.891 Personal history of nicotine dependence; K11.7 Disturbances of salivary secretion; M47.9 Spondylosis, unspecified; Z88.5 Allergy status to narcotic agent; Z88.8 Allergy status to other drugs, medicaments and biological substances
CPT/HCPCS: 36415; 71046; 80048; 80053; 81001; 85025; 85610; 85730; 96372; 99285; C1769; J1200; J1611; J1644; J2250; J2765; J3010; A9270

== ENCOUNTER → 2025-01-29 | Outpatient (CLI) | payer OTHER, SELFPAY ==
--- NOTE | 2025-01-29 09:15 | XR_ITS ---
Examination: Thyroid sonography complete TECHNIQUE: Grayscale sonographic images thyroid lobes Date and time: January 29, 2025 0903 hours INDICATIONS: Choking with eating food 5 years. FINDINGS: Right thyroid 4.6 cm No solid nodules Left thyroid 4.0 cm 4 x 3 mm midpole cyst No solid nodules IMPRESSION: No solid thyroid nodules
== END | disposition home or self-care (01) ==
LOC: CDIM 08:52
PROVIDERS: PCP Nurse Practitioner Family; Referring Provider Nurse Practitioner Family; Visit Provider Nurse Practitioner Family
DX: E04.9 Nontoxic goiter, unspecified (principal)
CPT/HCPCS: 76536; 84439; 84443; 84481; 86376